=== PATIENT | female | born 1960 | race Caucasian/White ===

== ENCOUNTER 2019-09-29 10:20 | Outpatient (CLI) | payer OTHER ==
--- NOTE | 2019-09-29 10:44 | RAD ---
2 view chest: [09/29/2019] Comparion:None available HISTORY: Dyspnea FINDINGS: Bilateral breast implants are present. Of note, the soft tissue shadow associated with the right breast is more prominent than the left, with increased density overlying the right breast shadow when compared to the left which may represent a soft tissue abnormality. Clinical correlation is required. No pneumothorax, pleural fluid, focal consolidation, or alveolar edema. Mild increased linear interstitial density with pulmonary hyperinflation. IMPRESSION: Asymmetric breast shadows as detailed above. Mild increased linear interstitial density a nd pulmonary hyperinflation may signify COPD in the proper clinical setting.
== END 2019-09-29 10:21 | disposition home or self-care (01) ==
LOC: RAD 10:20
PROVIDERS: ATTEND Internal Medicine Critical Care Medicine
DX: R06.00 Dyspnea, unspecified (principal); R91.8 Other nonspecific abnormal finding of lung field
CPT/HCPCS: 71046

== ENCOUNTER 2019-10-07 12:28 | Outpatient (CLI) | payer OTHER ==
--- NOTE | 2019-10-07 14:58 | ULT ---
Sonogram right breast Needle aspiration fluid collection right breast with sonographic guidance HISTORY: Enlarging right breast mass and pain. Abnormal fluid collection. History of silicone implant . FINDINGS: Echogenic implant of the right breast is visualized sonographically, with lobular, somewhat ill-defined areas of surrounding fluid. Small amount of internal septation and echogenic debris. This is greatest at the 3:00 position of the breast. Sterile technique, buffered local anesthesia, sonographic guidance, and a medial approach were used t o carefully advance the tip of a 20-gauge spinal needle into the fluid collection extrinsic to the right breast implant. A total volume of 50 cc of brown/black liquid was aspirated. A portion was sent to pathology in [facility] as prescribed by Dr. Sears from pathology. Care was taken to keep the envelope of the implant away from the tip of the needle. Needle was removed. Fluid was markedly decreased. Patient tolerated the procedure well and was dismis sed in good condition. IMPRESSION: Technically successful sonographic guided aspiration of the intracapsular right breast fl uid collection. 50 cc of dark fluid with the appearance of old blood. Pathology is pending. MRI of the breasts could be used to evaluate for integrity of the breast implants and the exact locat ion of the fluid and potentially better characterize the qualities of the fluid.
== END 2019-10-07 12:29 | disposition home or self-care (01) ==
LOC: BICMAMMO 12:28
PROVIDERS: ATTEND Internal Medicine Critical Care Medicine
DX: N60.01 Solitary cyst of right breast (principal); T85.43XA Leakage of breast prosthesis and implant, initial encounter
CPT/HCPCS: 76942; 88112; 88184; 88305; 88341; 88342; 88360

== ENCOUNTER 2019-12-09 12:58 | Emergency (ER) | payer OTHER ==
[2019-12-09 13:37] LABS: #Basophils 0.1 thou/uL (0.0-0.2); #Eosinphils 0.1 thou/uL (0.0-0.7); #Lymphocytes 1.7 thou/uL (1.20-3.40); #Monocytes 0.7 thou/uL (0.11-0.59); #Neutrophils 4.1 thou/uL (1.40-6.50); %Basophils 1.5 % (0.0-1.0); %Eosinophils 1.2 % (0.0-10.0); %Lymphocytes 25.8 % (21.0-51.0); %Neutrophils 61.4 % (42.0-75.0); Hemoglobin 14.1 g/dL (12.0-16.0); Mean Corpuscular HGB CONC 32.5 g/dL (32.0-36.0); Mean Corpuscular Hemoglobin 32.3 pg (27.0-31.0); Mean Corpuscular Volume 99.5 fL (78.0-98.0); Mean Platelet Volume 7.1 fL (7.4-10.4); Platelet Count 278 thou/uL (130-400); RBC Distribution Width 10.8 % (11.5-14.5); Red Blood Cell (RBC) Count 4.35 mill/uL (4.20-5.40); White Blood Cell (WBC) Count 6.7 thou/uL (4.8-10.8)
--- NOTE | 2019-12-09 13:43 | RAD ---
EXAM: Chest PA and lateral: HISTORY: Dyspnea COMPARISON: 09/29/2019 FINDINGS: Lung amin are clear. Vascular markings are normal. Heart and mediastinum appear unremarkable. Osseous structures are unremarkable. IMPRESSION: Unremarkable chest
[2019-12-09 14:10] LABS: ALT (SGPT) 50 U/L (8-55); AST (SGOT) 91 U/L (5-34); Albumin 4.7 g/dL (3.5-5.0); Alkaline Phosphatase 109 U/L (40-110); Anion Gap 14 mmol/L (10-20); BUN (Urea Nitrogen) 9 mg/dL (9.8-20.1); Bilirubin, Total 0.8 mg/dL (0.2-1.2); Calc. Creatinine Clearance 0 mL/min (70-130); Calcium 10.2 mg/dL (7.8-10.44); Carbon Dioxide 30 mmol/L (22-29); Chloride 99 mmol/L (98-107); Estimated GFR-MDRD 80; Globulin 3.1 g/dL (2.4-3.5); Glucose 96 mg/dL (70-105); Potassium 4.6 mmol/L (3.5-5.1); Protein, Total 7.8 g/dL (6.0-8.3); Sodium 138 mmol/L (136-145)
--- NOTE | 2019-12-09 14:32 | ULT ---
EXAM: US Breast Limited Rt PROVIDED CLINICAL HISTORY: Reason trauma to right breast. Evaluate for hematoma surrounding right breast implant. COMPARISON: Exam on 10/07/2019 FINDINGS: As seen on the prior examination, patient again has a right breast implant. There is a ill-defined moss rrounding fluid collection which again contains internal septations and echogenic debris. The collection is predominantly seen lateral and medial to the breast implant with largest portion of the collection seen laterally. Integrity of the breast implant is difficult to evaluate based on sonographic evaluation. IMPRESSION: Irregular fluid collection again seen adjacent to the right breast implant as described above. This c ollection has similar appearance to the prior exam and may represent hemorrhage surrounding the breast implant. Infection cannot be excluded based on sonographic evaluation. Integrity of the breast implant is difficult to adequately evaluate on sonographic evaluation.
[2019-12-09] MEDS ORDERED: Morphine 4 MG/ML VIAL ONE (16:56)
[2019-12-09] MEDS ORDERED: Ondansetron ODT 4 MG TAB ONE (16:56)
== END 2019-12-09 18:29 | disposition home or self-care (01) ==
LOC: ERS 12:58
DX: S20.01XA Contusion of right breast, initial encounter (principal); F41.9 Anxiety disorder, unspecified; Z79.899 Other long term (current) drug therapy; W01.198A Fall on same level from slipping, tripping and stumbling with subsequent striking against other object, initial encounter; Y92.009 Unspecified place in unspecified non-institutional (private) residence as the place of occurrence of the external cause
CPT/HCPCS: 36415; 71046; 80053; 83880; 85025; 96372; J2270; Q0162

== ENCOUNTER 2019-12-19 10:17 | Day surgery (SDC) | payer OTHER ==
[2019-12-11 17:33] VITALS: BMI 20.2
[2019-12-19] MEDS ORDERED: Ondansetron PF 4 MG/2 ML Vial ONE (11:06)
[2019-12-19] MEDS ORDERED: Lidocaine 1% PF 5 ML VIAL ONE (11:06)
[2019-12-19] MEDS ORDERED: Metoclopramide HCl 10 MG/2 ML VIAL ONE (11:06)
[2019-12-19] MEDS ORDERED: PROPOFOL 200 MG/20 ML VIAL ONE (11:06)
[2019-12-19] MEDS ORDERED: PHENYLEPHRINE-NS 100 MCG/ML 10 ML SYRINGE ONE (11:06)
[2019-12-19] MEDS ORDERED: Dexamethasone 20 MG/5 ML VIAL ONE (11:06)
[2019-12-19] MEDS ORDERED: Fentanyl 100 MCG/2 ML VIAL ONE ×3 (11:46→15:27)
[2019-12-19] MEDS ORDERED: Heparin 5,000 UNITS/ML VIAL ONE (11:49)
[2019-12-19] MEDS ORDERED: Bupivacaine 0.25% HCL 30 ML VIAL ONE (12:00)
[2019-12-19] MEDS ORDERED: Sodium Chloride 0.9% 0 ML ONE (12:00)
[2019-12-19] MEDS ORDERED: EPINEPHrine 1 MG/ML AMP ONE (12:00)
[2019-12-19] MEDS ORDERED: Gentamicin 80 MG/2 ML VIAL ONE (12:00)
[2019-12-19] MEDS ORDERED: Tranexamic Acid 1,000 MG/10 ML VIAL ONE (14:00)
--- NOTE | 2019-12-19 16:03 | OP ---
DATE OF PROCEDURE: 12/19/2019 PREOPERATIVE DIAGNOSIS: Right periprosthetic breast fluid. POSTOPERATIVE DIAGNOSIS: Right periprosthetic breast fluid. PROCEDURE PERFORMED: Right capsulectomy with removal of implant (). INDICATIONS FOR PROCEDURE: The patient is a 59-year-old female who had implants put in over 2 decades ago. Very recently, the right breast suddenly expanded. The patient has had silicone implants, but does not have any other implant information. Due to the concern for ALCL, she underwent an ultrasound-guided biopsy. The fluid was not consistent with ALCL. The fluid reaccumulated and was causing the patient a great deal of pain. I consulted with her and we decided that the most prudent course of action would be to remove the implant with the capsule and for the time being. This will give us time for histologic analysis of the capsule as well as any cultures that might be more challenging to grow out could be investigated for an infectious etiology of this problem. DESCRIPTION OF PROCEDURE: Following induction of adequate anesthesia, the patient was prepped and draped in usual sterile fashion in supine position. An inframammary crease incision was made. Dissection was carried sharply down through the capsule. The capsule was entered sharply, entered with the fluid being collected in a mucus trap. There was probably over 150 mL of periprosthetic fluid. A capsulectomy was then performed. The implant was ruptured. There was a great deal of edema in the surrounding tissues. After the capsule was circumferentially dissected free, the implant was inspected. It was noted to be a smooth around [place] 460 mL implant by the identifying [place] on the back. It was a retropectoral implant pocket with significant window shading of the pectoralis. The pocket was copiously irrigated and then inspected for meticulous hemostasis prior to placement of two 10-[place] drains. The breast was positioned in a statically pleasing position as best could be fashioned using a series of 2-0 PDS sutures to minimize the retraction of the nipple as well as to place the nipple in on the chest wall. The incision was closed with 2-0 PDS suture followed by 3-0 Monocryl suture. The patient tolerated the procedure well. Job ID: [id number]
[2019-12-19] MEDS ORDERED: HYDROcodone/Acetaminophen 5/325 mg Tablet ONE (17:16)
[2019-12-23 08:12] LABS: Fungus Stain Final report (.)
== END 2019-12-19 17:35 | disposition home or self-care (01) ==
LOC: SDC 10:17
PROVIDERS: ATTEND Plastic Surgery
PROC: 0HPT0JZ Removal of Synthetic Substitute from Right Breast, Open Approach (ICD-10-PCS; principal; 2019-12-19)
DX: T85.43XA Leakage of breast prosthesis and implant, initial encounter (principal); Z79.899 Other long term (current) drug therapy
CPT/HCPCS: 87070; 87102; 87116; 87205; 87206; 88112; 88184; 88300; 88305; J0171; J0690; J1100; J1580; J1644; J2001; J2405; J2704; J2765; J3010; J3370; J3490; S0020